=== PATIENT | female | born 1985 | race Caucasian/White ===

== ENCOUNTER 2021-08-25 11:22 | Outpatient (CLI) | payer OTHER, SELFPAY ==
[2021-08-25 11:44] LABS: Hematocrit 37.9 % (37.0-47.0); Hemoglobin 13.7 g/dL (12.0-15.0)
== END 2021-08-25 11:23 | disposition home or self-care (01) ==
PROVIDERS: Anesthesiology; PCP Internal Medicine; Visit Provider Obstetrics & Gynecology
DX: Z01.812 Encounter for preprocedural laboratory examination (principal); N39.3 Stress incontinence (female) (male); D64.9 Anemia, unspecified
CPT/HCPCS: 36415; 85014; 85018; 86850; 86900; 86901

== ENCOUNTER 2021-08-28 02:03 | Day surgery (SDC) | payer OTHER, SELFPAY ==
[2021-08-24 11:07] VITALS: BMI 31.8
--- NOTE | 2021-08-24 11:15 | PC.NURSE ---
Report to the Outpatient Waiting Room, entrance under the green pavilion located off [facility], at time _0600_ on date _[id number]_. OR Time: _0730_. - You and your visitor will be asked a series of questions to screen for COVID 19 for your protection. - Only one visitor is allowed at this time. - The patient visitor is requested to leave or wait in car when not with patient. - A mask is required within the hospital. Patients may have clear liquids (water, carbonated beverages, clear teas, apple juice) until 3 hours prior to surgery with a maximum of 20 ounces. - No food from midnight until time of surgery Take the following medications with a SIP of water the morning of surgery: ___None Medications to discontinue per physician ___Vitamin d3 Date to take last kztm___[id number] Please no make-up, nail kenyan, hairspray, perfume, deodorant, or body powder the day of surgery. No jewelry (including any body piercings) or valuables the day of surgery, leave them at home. Please take a shower or bath the night before, or the morning of, surgery with an antibacterial soap. Wear comfortable, loose fitting clothing. - Jewelry must be removed prior to entering the operating room. Rings and piercings that are not removed may be cut off. - The hospital will not accept responsibility for valuables. - Please leave all valuables, including medications, at home the day of surgery. If you are going home after surgery, a licensed electric truck driver must drive you home. - NO public transportation without another adult. - We recommend that an adult stay with you for 24 hours following discharge. - We also recommend that you do not drive, make important decision, drink alcoholic beverages, or take any drugs that were not prescribed by your health care provider for at least 24 hours after your discharge time. Follow any additional instructions given to you from your surgeon. If you or anyone in your household have experienced Covid symptoms in the past week, please notify your surgeon or the nurse liaison at the phone number below for possible testing. Telephone instructions given to ___Patient and asked if any additional questions and then verbalized understanding. Patient advised to call surgeon office or pre surgery nurse liaison [phone] if any additional questions.
--- NOTE | 2021-08-26 07:02 | PM.IMHP ---
H&P: HPI History of Present Illness Date/Time: 08/26/21 07:02 Chief Complaint: Stress urinary incontinence Narrative: This is a 35-year-old 2 para 2 status post hysterectomy who is ovaries remain complaining loss of urine coughing laughing sneezing and routine activity she is a runner and loses urine when she runs she finds this intolerable. She Petterchak exercises been unhelpful. Risks and benefits of this procedure reviewed including but not exclusive of , aspiration pneumonia, bleeding, transfusion, perforation injury to bowel, bladder, ureters, or other internal organs with need for open laparotomy. The need for intermittent catheterization or mesh exposure were also reviewed. She received the the TVT handout. She had all questions answered to her satisfaction. She asked to proceed PMFSH Social History Social History Years smoked: 4 Smoking status: Former smoker Smoking end date: 08/24/18 Alcohol intake: current Drinks per week: 4 Spiritual care concerns: No Meds Home Medications and Allergies Home Medications Medication Instructions Recorded Confirmed Type cholecalciferol (vitamin D3) 25 25 mcg PO DAILY 08/24/21 08/24/21 History mcg (1,000 unit) capsule (Vitamin D3) Allergies Allergy/AdvReac Type Severity Reaction Status Date / Time NSAIDS (Non-Steroidal AdvReac Unknown Diarrhea Verified 08/24/21 11:06 Anti-Inflamma [place] Allergy Unknown HIVES Uncoded 01/16/18 11:38 Exam : External Female Exam: normal external appearance and other (Hyperactivity with Valsalva to urethra) Speculum Exam - Vagina: normal appearance of the vagina Speculum Exam - Cervix: Cervix absent Bimanual exam- vagina & uterus: uterus absent Bimanual Exam- Adnexa, other: normal adnexae Assessment and Plan Assessment and plan (1) Primary stress urinary incontinence: Code(s): N39.3 - Stress incontinence (female) (male) Status: Acute Plan Tension-free vaginal tape with cystoscopy
[2021-08-28] VITALS (10 sets, daily range): BP systolic 102–124; BP diastolic 57–86; PULSE 62–85; RESP 12–18; TEMP 36.2; O2SAT 98–100
[2021-08-28] MEDS: LACTATED RINGERS 1,000 ML 30 ML IV CONT ×2 (06:33→08:50)
--- NOTE | 2021-08-28 06:35 | P.PNAN_ITS ---
Anes - Initial Pre Proc Eval Procedure: Operation Date: 08/28/21 07:30 Proposed Procedures p Tension Free Vaginal Taping - Wilfrid Brooks MD Date/Time: 08/28/21 06:35 Surgeon: Wilfrid Brooks MD Pre Op Diagnosis: MODESTO Patient Data Age: 35 Gender: F Height: 1.63 m Weight: 83.7 kg Last Vital Signs Temp 36.2 C L 08/28/21 06:15 Pulse 85 08/28/21 06:15 Resp 16 08/28/21 06:15 BP 111/63 08/28/21 06:15 Pulse Ox 100 08/28/21 06:15 O2 Del Method Room Air 08/28/21 06:15 Allergies Allergy/AdvReac Type Severity Reaction Status Date / Time NSAIDS (Non-Steroidal AdvReac Unknown Diarrhea Verified 08/28/21 06:07 Anti-Inflamma Home Medications Medication Instructions Recorded Confirmed Type cholecalciferol (vitamin D3) 25 25 mcg PO DAILY 08/24/21 08/28/21 History mcg (1,000 unit) capsule (Vitamin D3) Patient hx anesthesia problems: none Family hx anesthesia problems: none Results Review: All pre-operative results and documents have been reviewed as part of the pre- operative evaluation. [facility] Past Medical History Medical History (Updated 08/28/21 @ 06:36 by Wilfrid Ceaj MD) Obesity Surgical History Surgical History (Updated 08/28/21 @ 06:36 by Wilfrid Ceja MD) H/O: hysterectomy Social History Social History Years smoked: 4 Smoking status: Former smoker Smoking end date: 08/24/18 Alcohol intake: current Drinks per week: 4 Living arrangements: with family Spiritual care concerns: No Anes - Eval Final PreProcedure Day of Procedure 08/28/21 06:35 Patient weight: obese Heart: regular rate and rhythm Lungs: clear to auscultation Airway: Mallampati scale class 1 Neurological: alert and oriented Last oral intake: >/= 8 hours ASA classification: II Emergent: no Anesthetic plan: proceed Anesthesia type and monitoring: general LMA and standard monitoring Results Review: All pre-operative results and documents have been reviewed as part of the pre- operative evaluation. Informed Consent: The patient's anesthetic plan and its attendant risks and benefits were discussed with the patient/family/POA. Questions were solicited and answers provided to the satisfaction of the patient/family/POA.
--- NOTE | 2021-08-28 06:39 | WPDHPUPDATE1 ---
History and Physical Update Update Date/Time: 08/28/21 06:39 History and Physical has been reviewed, including an updated exam of the patient. There are NO changes in the patient's condition. Risks, benefits, and alternatives have been discussed and questions answered. Patient agrees to proceed with procedure.
[2021-08-28] MEDS: ceFAZolin 2 GM/D5W 50 ML 2 GM/50 ML BAG IVPB (07:25)
--- NOTE | 2021-08-28 08:06 | P.OP_ITS ---
Procedure Note - Detailed Date of Procedure 08/28/21 Pre-op Diagnosis MODESTO Post-op Diagnosis Same Procedure Performed Tension-free vaginal tape / cystoscopy Surgeon Wilfrid Brooks MD Anesthesia General Indications with the 35-year-old female status with stress urinary incontinence Findings stress urinary incontinence Description of Procedure the patient was prepped draped in the normal sterile fashion placed in dorsal lithotomy position. Under excellent general anesthesia weighted speculum placed in posterior fornix vagina. The 16 [place] catheter was placed in the bladder drained clear urine. The mid you suburethral incision was made in the lateral bladder spaces entered by blunt dissection. The the urethral guide was then placed in the retracted laterally. The right retropubic bladder space entered in 45 degree angle up to 35 and through the fascia and skin. The urethra was retracted the opposite direction and the left retropubic bladder space entered at a 45 degree angle and up through 35 through the fascia and skin. The catheter was then removed. The 30degree cystoscope inserted no injury seen. This was then brought up to the level of a but open P on clamped. It laid flat nicely. Plastic was cut and removed. The suprapubic tape was cut and the vagina closed with 0 chromic. Blood loss for the procedure was 25cc. All sponge, needle, instrument counts were correct. There were no immediate complications Implants TVT mesh Estimated Blood Loss 25 Drains No Packing No Pathology None sent Complications No immediate complications Condition Stable Disposition PACU
[2021-08-28] MEDS: fentaNYL CITRATE INJ (*CRX) 100 MCG/2 ML VIAL 25 MCG IV PUSH ×8 (08:28→08:42)
[2021-08-28] MEDS: HYDROmorphone HCL INJ (*CRX) 1 MG/ML SYR 0.5 MG IV PUSH ×4 (08:57→09:55)
[2021-08-28] MEDS: oxyCODONE HCL (*CRX) 5 MG TAB IR PO (09:25)
[2021-08-28] MEDS: ONDANSETRON INJ 4 MG/2 ML VIAL IV PUSH (10:10)
== END 2021-08-28 10:55 | disposition home or self-care (01) ==
PROVIDERS: PCP Internal Medicine; Visit Provider Obstetrics & Gynecology
PROC: 0TSD0ZZ Reposition Urethra, Open Approach (ICD-10-PCS; CPT 57288; principal; 2021-08-28 07:30)
DX: N39.3 Stress incontinence (female) (male) (principal); Z87.891 Personal history of nicotine dependence; E66.9 Obesity, unspecified; Z68.31 Body mass index [BMI] 31.0-31.9, adult
CPT/HCPCS: 57288; 36415; 85014; 85018; 86850; 86900; 86901; A9270; C1771; J0690; J1100; J1170; J2250; J2405; J2704; J3010; J7030; J7120

== ENCOUNTER 2021-12-24 15:34 | Emergency (ER) | payer OTHER, SELFPAY ==
[2021-12-24 15:48] VITALS: BP 130/71; PULSE 78; RESP 18; TEMP 36.1; O2SAT 99
--- NOTE | 2021-12-24 18:18 | PC.NURSE ---
Pt ambulatory to intake desk and states Im leaving. Pt wanting to leave due to wait time. Pt ambulated out in NAD. Steady gait.
== END 2021-12-25 04:15 | disposition left against medical advice (07) ==
LOC: ANHED 18:42
PROVIDERS: PCP Internal Medicine
DX: R68.89 Other general symptoms and signs (principal); T47.6X5A Adverse effect of antidiarrheal drugs, initial encounter
CPT/HCPCS: 99199

== ENCOUNTER 2023-11-23 16:03 | Emergency (ER) | payer OTHER, SELFPAY ==
[2023-11-23 16:27] VITALS: BP 124/75; PULSE 88; RESP 16; TEMP 36.6; O2SAT 100
--- NOTE | 2023-11-23 16:55 | ED.GENADULT ---
HPI - General Adult General Chief complaint: Wound/Laceration Stated complaint: left breast wound Time Seen by Provider: 11/23/23 16:31 History of Present Illness HPI narrative: Patient is a 37-year-old female who presents ER with a nonhealing wound to the left breast. Ongoing since 10/31/2023. No fevers or chills or sweats. Had been on Bactrim and recently placed on cephalexin. PCP feels it needs debridement and patient cannot get in to a breast surgeon. No fevers or chills or sweats. Has discomfort and thickening in the periphery of the area of the wound. Related Data Home Medications Medication Instructions Recorded Confirmed cholecalciferol (vitamin D3) 25 25 mcg PO DAILY 08/24/21 08/28/21 mcg (1,000 unit) capsule (Vitamin D3) Allergies Allergy/AdvReac Type Severity Reaction Status Date / Time NSAIDS (Non-Steroidal AdvReac Unknown Diarrhea Verified 08/28/21 06:07 Anti-Inflamma Review of Systems Constitutional: Constitutional: Reports no additional constitutional complaints Musculoskeletal: Musculoskeletal: Reports no additional musculoskeletal complaints Integumentary/Breasts: Skin/Breast: Reports erythema, Denies rash and Reports skin ulcer PMFSH Past Medical History Medical History (Updated 11/23/23 @ 17:14 by Raymond Bourgeois MD) Obesity Surgical History Surgical History (Updated 08/28/21 @ 06:36 by Wilfrid Ceja MD) H/O: hysterectomy Social History Social History Years smoked: 4 Smoking status: Former smoker Smoking end date: 08/24/18 Alcohol intake: current Drinks per week: 4 Living arrangements: with family Spiritual care concerns: No Exam Narrative: GENERAL: Well-appearing, well-nourished, and in no acute distress. HEAD: Normocephalic, atraumatic. ENT: Mucous membranes moist. EXTREMITIES: Normal range of motion. No edema. SKIN: Medial left breast with 3 cm diameter wound with slight erythema to the periphery and centrally it has a white and yellow granulation tissue. NEURO: Alert and oriented x3. PSYCH: Normal mood and affect. Course Course Emergency Course: Discussed with general surgery patient can follow-up in clinic tomorrow afternoon with Dr. Obregon. Otherwise it will be 1 week. Continue home antibiotics. Patient verbalized understanding of care plan. Vital Signs Vital signs: Vital Signs Temperature 97.8 F 11/23/23 16:27 Pulse Rate 88 11/23/23 16:27 Respiratory Rate 16 11/23/23 16:27 Blood Pressure 124/75 11/23/23 16:27 Pulse Oximetry 100 11/23/23 16:27 Oxygen Delivery Room Air 11/23/23 16:27 Temperature 97.8 F 11/23/23 16:27 Pulse Rate 88 11/23/23 16:27 Respiratory Rate 16 11/23/23 16:27 Blood Pressure 124/75 11/23/23 16:27 Pulse Oximetry 100 11/23/23 16:27 Oxygen Delivery Room Air 11/23/23 16:27 Medical Decision Making Vital Signs Vital Signs: Vital Signs Temperature 97.8 F 11/23/23 16:27 Pulse Rate 88 11/23/23 16:27 Respiratory Rate 16 11/23/23 16:27 Blood Pressure 124/75 11/23/23 16:27 Pulse Oximetry 100 11/23/23 16:27 Oxygen Delivery Room Air 11/23/23 16:27 Temperature 97.8 F 11/23/23 16:27 Pulse Rate 88 11/23/23 16:27 Respiratory Rate 16 11/23/23 16:27 Blood Pressure 124/75 11/23/23 16:27 Pulse Oximetry 100 11/23/23 16:27 Oxygen Delivery Room Air 11/23/23 16:27 Discharge Plan Discharge Clinical Impression: Breast wound Patient Disposition: Home, Self-Care Condition: Stable Instructions: Chronic Wounds (ED) Additional Instructions: Contact the general surgery office tomorrow morning. You will need to be added on to the afternoon clinic for Dr. Obregon. Return to the ER if you have fever over 101F, you cannot keep down food/water, you have a red/hot breast, or have other concerns. Prescriptions: No Action cholecalciferol (vitamin D3) [Vitamin D3]
== END 2023-11-23 17:30 | disposition home or self-care (01) ==
PROVIDERS: Emergency Provider Emergency Medicine; PCP Internal Medicine
DX: L98.8 Other specified disorders of the skin and subcutaneous tissue (principal); E66.9 Obesity, unspecified; Z68.33 Body mass index [BMI] 33.0-33.9, adult; Z90.710 Acquired absence of both cervix and uterus; Z87.891 Personal history of nicotine dependence
CPT/HCPCS: 99281